=== PATIENT | male | born 1995 | race Hispanic/Latino ===

== ENCOUNTER 2023-08-10 05:42 | Day surgery (SDC) | payer MEDICARE, OTHER ==
[~2023-08-10] VITALS: Ht 167.6 cm; Wt 63.2 kg
[~2023-08-10 05:42] MED LIST: ADVIL200 M1 PO; MAGNESIUM250 MG PO; MILK THISTLE500 MG PO; OSTERA TABLET1 EACH PO; VIT C-ECHINACE1 EACH PO
[2023-08-10 06:02] VITALS: BP 113/71
[2023-08-10] MEDS ORDERED: MELATONIN2.5 MG PO (06:07)
--- NOTE | 2023-08-10 08:52 | NUR ---
08/10/23 0852 Jacqui Ocampo 0830- PT PRESENTS TO PACU IN SEMI SHULTZ POSITION, PT NON REACTIVE TO STIMULI. LR INFUSING TO IV IN RH STARTED IN OR. ALL MONITORS APPLIED, O2 AT 6L PER MASK. BREATHING EVEN AND NON LABORED, SATS 100% 0835- CONTINUE TO MONITOR PT, NO SIGNS OF DISTRESS. CONTINUES TO REST AT THIS TIME. 0840- O2 REMAINS IN PLACE, LR INFUSING. BREATHING EVEN AND NON LABORED. NO CHANGE IN PT STATUS. 0848- PT MOVED TO ROOM AIR AT THIS TIME. LR COMPLETE AND IV SALINE LOCKED. WRAPPED WITH COBAN. WILL CONTINUE TO MONITOR.
[2023-08-10 09:22] VITALS: BP 102/59
--- NOTE | 2023-08-10 09:25 | NUR ---
PT ARRIVES TO UNIT VIA STRETCHER FROM PACU. PT IS RESTING W/EYES CLOSED. RESPIRATIONS ARE EVEN AND UNLABORED, NO SIGNS OF DISTRESS. O2 >90% VIA PULSE OX. REPORT RECEIVED FROM RAMONA SHEIKH W/CAREGIVERS AT BEDSIDE. VS TAKEN. PT AROUSABLE TO TACTILE STIMULI. SMALL AMOUNT OF DRAINAG FROM RT NARE D/T INTUBATION. NO SIGNS OF BLEEDING FROM SURGICAL SITE AT THIS TIME. CALL LIGHT WITHIN REACH, NO FURTHER NEEDS AT THIS TIME.
[2023-08-10 09:26] VITALS: BP 107/65
--- NOTE | 2023-08-10 10:04 | NUR ---
ANSWERED PT CALL LIGHT D/T CAREGIVER STATING PT HAS TO USE RESTROOM. PT A&O AT THIS TIME, BACK TO BASELINE. PT NOT TOLERATING GOWN ON AT THIS TIME, PT GETS DRESSED, STANDBY ASSIST. CAREGIVER TO RESTROOM W/PT FOR VOID ASSISTANCE. PT BACK TO ROOM AND EATING APPLESAUCE/SIPPING ICE WATER WITHOUT DIFFICULTY SWALLOWING. PER FLACC SCALE PT DOES NOT APPEAR IN ANY PAIN AT THIS TIME.
--- NOTE | 2023-08-10 10:15 | NUR ---
DISCHARGE EDUCATION PROVIDED BY THIS RN, PT CAREGIVERS STATE VERBAL UNDERSTANDING AND STATE NO FURTHER QUESTIONS AT THIS TIME. PT DOES NOT TOLERATE ANY VS AT THIS TIME, PT BECOMES COMBATIVE. PT AMBULATES W/OUT ANY EVIDENCE OF UNSTEADY GAIT OR DIZZINESS. PT OFF OF UNIT VIA WC BY THIS RN AND IN BACKSEAT OF CAREGIVER'S VEHICLE. ALL BELONGINGS IN PT POSSESSION. PT CAREGIVERS STATE NO FURTHER NEEDS AT THIS TIME.
== END 2023-08-10 10:15 | disposition home or self-care (01) ==
LOC: DS 05:42
PROVIDERS: ATTEND Dentist General Practice
PROC: 0CRW0J1 Replacement of Upper Tooth, Multiple, with Synthetic Substitute, Open Approach (ICD-10-PCS; 2023-08-10)
PROC: 0CRX0J0 Replacement of Lower Tooth, Single, with Synthetic Substitute, Open Approach (ICD-10-PCS; principal; 2023-08-10 07:00)
DX: M26.4 Malocclusion, unspecified (principal); K00.7 Teething syndrome; K02.9 Dental caries, unspecified
CPT/HCPCS: 00170; J2001; J2405; J2704; J3490